=== PATIENT | female | born 1995 | race Hispanic/Latino ===

== ENCOUNTER → 2024-03-15 | Outpatient (REF) | LOC: M EMP 10:07 | PROVIDERS: ATTEND Family Medicine | DX: Z11.52 Encounter for screening for COVID-19 (principal) ==

== ENCOUNTER 2024-04-23 20:21 | Emergency (ER) | payer OTHER ==
[~2024-04-23] VITALS: Ht 144.8 cm; Wt 65.5 kg
[2024-04-23 21:11] LABS: BASO # 0.1 10^3/uL (0.0-0.2); BASO % 0.4 % (0.0-1.0); EOS # 0.3 10^3/uL (0.0-0.5); EOS % 2.1 % (0.0-3.0); HEMOGLOBIN 14.5 g/dl (12.0-15.5); LYMPH % 29.8 % (24.0-44.0); MEAN CORPUSCULAR HEMOGLOBIN 29.2 pg (27.0-33.0); MEAN CORPUSCULAR HGB CONC 33.7 g/dl (32.0-36.5); MEAN CORPUSCULAR VOLUME 86.5 fl (80.0-96.0); MONO # 0.9 10^3/uL (0.0-0.8); MONO % 6.7 % (2.0-8.0); NEUTROPHILS # 8.2 10^3/uL (1.5-8.5); NEUTROPHILS % 60.4 % (36.0-66.0); PLATELET COUNT, AUTOMATED 299 10^3/uL (150-450); RED BLOOD COUNT 4.97 10^6/uL (4.00-5.40); WHITE BLOOD COUNT 13.5 10^3/uL (4.0-10.0)
[2024-04-23 21:36] LABS: LIPASE 66 U/L (12-53)
[2024-04-23 21:38] LABS: ALKALINE PHOSPHATASE 104 U/L (46-116); ALT/SGPT 25 U/L (7.0-40); AST/SGOT 13 U/L (<34); BILIRUBIN,DIRECT < 0.1 MG/DL (<0.4); BILIRUBIN,TOTAL 0.2 MG/DL (0.3-1.2); BLOOD UREA NITROGEN 15 MG/DL (9-23); CARBON DIOXIDE LEVEL 27 MMOL/L (20-31); CHLORIDE LEVEL 107 MMOL/L (98-107); CREATININE FOR GFR 0.79 MG/DL (0.55-1.30); GLOMERULAR FILTRATION RATE > 60.0 (>60); GLUCOSE, FASTING 83 MG/DL (60-100); SODIUM LEVEL 139 MMOL/L (136-145); TOTAL PROTEIN 6.9 G/DL (5.7-8.2)
[2024-04-23] MEDS: KETOROLAC 30 MG/ML 1ML VIAL IV ONE (21:49)
[2024-04-23] MEDS: LevoFLOXacin 750 MG TABLET PO ONE (22:35)
[2024-04-23] MEDS ORDERED: LEVO1TAB40 PO (22:44)
[2024-04-23] MEDS ORDERED: FLUC150T9 PO (22:48)
[2024-04-23 22:51] VITALS: BP 121/67; TEMP 97.8; O2SAT 99
== END 2024-04-23 22:55 | disposition home or self-care (01) ==
LOC: M ED 20:21
DX: N10 Acute pyelonephritis (principal); F17.200 Nicotine dependence, unspecified, uncomplicated; Z88.5 Allergy status to narcotic agent
CPT/HCPCS: 74176; 80047; 80048; 80076; 81001; 83690; 85025; 96374; 99284; J1885

== ENCOUNTER → 2024-10-31 | Outpatient (REF) | payer OTHER ==
[~2024-10-31] MED LIST: FLUC150T9 PO; LEVO1TAB40 PO
== END ==
LOC: M LAB REF 16:24
PROVIDERS: ATTEND Nurse Practitioner Family
DX: J02.9 Acute pharyngitis, unspecified (principal)

== ENCOUNTER → 2025-02-18 | Outpatient (REF) | payer OTHER | LOC: M WUC 17:30 | PROVIDERS: ATTEND Student in an Organized Health Care Education/Training Program | DX: R30.0 Dysuria (principal) ==